=== PATIENT | male | born 1945 | race Caucasian/White ===

== ENCOUNTER → 2016-10-10 | Outpatient (REF) | payer OTHER | LOC: M SFHCPLAZ 10:04 | PROVIDERS: ATTEND Nurse Practitioner Family | DX: J44.9 Chronic obstructive pulmonary disease, unspecified (principal); Z00.00 Encounter for general adult medical examination without abnormal findings; E78.5 Hyperlipidemia, unspecified; R73.01 Impaired fasting glucose; Z53.8 Procedure and treatment not carried out for other reasons ==

== ENCOUNTER → 2016-10-11 | Outpatient (REF) | payer OTHER ==
[2016-10-11 12:06] LABS: BASO % 0.5 % (0.0-1.0); EOS # 0.2 K/mm3 (0.0-0.50); LARGE UNSTAINED CELL # 0.2 K/mm3 (0.0-0.4); LARGE UNSTAINED CELL % 2.8 % (0.0-4.0); LYMPH # 2.3 K/mm3 (1.5-4.5); MEAN CORPUSCULAR HEMOGLOBIN 29.4 pg (27.0-33.0); MEAN CORPUSCULAR VOLUME 89.3 fl (80.0-96.0); MONO # 0.4 K/mm3 (0.0-0.8); MONO % 6.3 % (0.0-5.0); NEUTROPHILS # 3.4 K/mm3 (1.8-7.7); NEUTROPHILS % 52.4 % (36.0-66.0); PLATELET COUNT, AUTOMATED 234 k/mm3 (150-450); RED CELL DISTRIBUTION WIDTH 12.6 % (11.5-14.5); WHITE BLOOD COUNT 6.5 K/mm3 (4.0-10.0)
[2016-10-11 12:11] LABS: ALBUMIN 3.4 GM/DL (3.2-5.2); ALBUMIN/GLOBULIN RATIO 1.13 (1.00-1.93); ALKALINE PHOSPHATASE 94 U/L (45-117); ALT/SGPT 22 U/L (12-78); ANION GAP 9 MEQ/L (8-16); AST/SGOT 15 U/L (15-37); BILIRUBIN,TOTAL 0.5 MG/DL (0.2-1.0); BLOOD UREA NITROGEN 10 MG/DL (7-18); CALCIUM LEVEL 8.8 MG/DL (8.8-10.2); CARBON DIOXIDE LEVEL 28 MEQ/L (21-32); CHLORIDE LEVEL 106 MEQ/L (98-107); CHOLESTEROL LEVEL 193 MG/DL (<200); CREATININE FOR GFR 0.89 MG/DL (0.70-1.30); GLOMERULAR FILTRATION RATE > 60.0 (>42); GLUCOSE, FASTING 150 MG/DL (83-110); POTASSIUM SERUM 4.8 MEQ/L (3.5-5.1); SODIUM LEVEL 143 MEQ/L (136-145); TOTAL PROTEIN 6.4 GM/DL (6.4-8.2); TRIGLYCERIDES LEVEL 133 MG/DL (<150)
== END ==
LOC: M SFHCPLAZ 09:12
PROVIDERS: ATTEND Nurse Practitioner Family
DX: Z00.00 Encounter for general adult medical examination without abnormal findings (principal); J44.9 Chronic obstructive pulmonary disease, unspecified; E78.5 Hyperlipidemia, unspecified; R73.01 Impaired fasting glucose

== ENCOUNTER → 2017-05-28 | Outpatient (CLI) | payer OTHER ==
--- NOTE | 2017-05-28 16:43 | REP ---
CT chest without IV contrast: History: Pulmonary nodule. Comparison with [place] prior study 12/06/2014. CT findings: The lungs remain hyperinflated. There is a curvilinear and partially cavitary somewhat nodular opacity in the right upper lobe again noted. The lesion is in a slightly area of orientation compared to the prior study and has a somewhat different shape. It is more cavitary. Today it measures 2.7 x 1.3 x 1.6 cm. There are linear fibrotic markings extending from the lesion to the apex and to the anterior chest wall. In the left apex there is a stable size nodular density measuring 0.7 x 1.1 cm. This appears somewhat cavitary in nature on the November 2014 study. It appears solid today but is essentially unchanged. It does not appear suspicious. There is a third nodular opacity visible on today's CT study on page 54 of 120 in series 201. This is in the left upper lobe measuring 6 mm in greatest diameter. This is visible in retrospect and is unchanged from the November 2014 prior study consistent with a benign nodule. There are some areas of pleural plaquing or thickening which are unchanged in the major fissures. A subpleural nodule is seen in the right lower lobe on page 66 unchanged. No new pulmonary nodule is appreciated. No hilar or mediastinal mass or adenopathy is observed. No adrenal mass is seen Calcified gallstone is visible in the gallbladder. There is a cyst in the left lobe of the liver measuring 2.3 cm. This is unchanged. Some vascular calcification is noted. Impression: Cavitary nodular opacity in the right upper lobe is slightly larger than on the prior study. Two nodules in the left upper lobe are unchanged from 2015. There is evidence of COPD. Cholelithiasis and hepatic cyst seen. Signed by Ezra Landon MD 05/29/2017 07:57 A
== END ==
LOC: M RAD 07:20
PROVIDERS: ATTEND Internal Medicine Pulmonary Disease
DX: R91.8 Other nonspecific abnormal finding of lung field (principal); J44.9 Chronic obstructive pulmonary disease, unspecified; K80.20 Calculus of gallbladder without cholecystitis without obstruction; K76.89 Other specified diseases of liver

== ENCOUNTER → 2017-07-31 | Outpatient (CLI) | payer OTHER ==
--- NOTE | 2017-08-02 08:40 | REP ---
PET/CT: History: Solitary pulmonary nodule. Comparisons: Comparison is made with chest CT study from May 28, 2017 and an outside prior chest CT study from December 06, 2014. TECHNIQUE: 51 minutes following the intravenous injection of a 9.4 mCi dose of F-18 FDG, three-dimensional PET scintigraphy is acquired from the skull base to the proximal thighs. Triplanar noncontrast CT scanning is acquired through the same anatomic range for attenuation correction, and image registration with scan parameters optimized to minimize radiation exposure to the patient. PET scintigraphy and CT datasets were fused and displayed on a workstation with multiplanar and projection display capability. PET/CT Findings: There is minimal hypermetabolic uptake in the cavitary nodular process in the right apex, maximum standard uptake value 2.4. There is no hypermetabolic uptake in the left apical nodule, SUV 1.1. There is no other abnormal hypermetabolic uptake in the thorax. Incidental note is made of hypermetabolic uptake in the larynx, most pronounced anteriorly and to the left of midline with an area of hypermetabolic uptake up to 7.7 maximum standard uptake value. This appears to be at and just above the level of the glottis. There is no discernible soft tissue mass or asymmetry on accompanying CT. This could be a false-positive. Consider indirect laryngoscopy. Head and neck soft tissues are otherwise unremarkable. In the abdomen and pelvis, there is no abnormal FDG accumulation. Impression: The fibronodular cavitary density in the right upper lobe shows minimally hypermetabolic uptake. Malignancy is not completely excluded. Incidental equivocal laryngeal hypermetabolic uptake as described above. Consider indirect laryngoscopy. Signed by Ezra Landon MD 08/02/2017 01:10 P
== END ==
LOC: M PLARAD 07:40
PROVIDERS: ATTEND Internal Medicine Pulmonary Disease
DX: R91.1 Solitary pulmonary nodule (principal)
CPT/HCPCS: 78815; A9552

== ENCOUNTER → 2018-03-03 | Outpatient (CLI) | payer OTHER | LOC: M RAD 09:11 | DX: R91.8 Other nonspecific abnormal finding of lung field (principal) | CPT/HCPCS: 71250 ==

== ENCOUNTER → 2018-08-08 | Outpatient (REF) | payer OTHER ==
[2018-08-08 13:34] LABS: HEMATOCRIT 46.4 % (42.0-52.0); HEMOGLOBIN 15.1 g/dl (13.5-17.5); MEAN CORPUSCULAR HEMOGLOBIN 29.7 pg (27.0-33.0); MEAN CORPUSCULAR HGB CONC 32.5 g/dl (32.0-36.5); MEAN CORPUSCULAR VOLUME 91.2 fl (80.0-96.0); PLATELET COUNT, AUTOMATED 240 10^3/uL (150-450); RED BLOOD COUNT 5.09 10^6/uL (4.30-6.10); RED CELL DISTRIBUTION WIDTH 12.9 % (11.5-14.5); WHITE BLOOD COUNT 8.6 10^3/uL (4.0-10.0)
[2018-08-08 13:45] LABS: ALBUMIN 3.7 GM/DL (3.2-5.2); ALBUMIN/GLOBULIN RATIO 1.09 (1.00-1.93); ALKALINE PHOSPHATASE 86 U/L (45-117); ALT/SGPT 26 U/L (12-78); ANION GAP 5 MEQ/L (8-16); AST/SGOT 19 U/L (7-37); BILIRUBIN,TOTAL 0.4 MG/DL (0.2-1.0); BLOOD UREA NITROGEN 12 MG/DL (7-18); CALCIUM LEVEL 9.2 MG/DL (8.8-10.2); CARBON DIOXIDE LEVEL 31 MEQ/L (21-32); CHLORIDE LEVEL 105 MEQ/L (98-107); CHOLESTEROL LEVEL 230 MG/DL (<200); CHOLESTEROL RISK RATIO 6.216 (<5); CREATININE FOR GFR 0.96 MG/DL (0.70-1.30); GLOMERULAR FILTRATION RATE > 60.0 (>42); GLUCOSE, FASTING 125 MG/DL (70-100); HDL CHOLESTEROL 37 MG/DL (>40); LDL CHOLESTEROL 164 MG/DL (<100); NON-HDL-C 193 MG/DL; POTASSIUM SERUM 4.6 MEQ/L (3.5-5.1); SODIUM LEVEL 141 MEQ/L (136-145); TOTAL PROTEIN 7.1 GM/DL (6.4-8.2); TRIGLYCERIDES LEVEL 146 MG/DL (<150)
== END ==
LOC: M SFHCPLAZ 10:38
DX: E78.5 Hyperlipidemia, unspecified (principal); J44.9 Chronic obstructive pulmonary disease, unspecified
CPT/HCPCS: 84443

== ENCOUNTER → 2018-08-25 | Outpatient (CLI) | payer OTHER | LOC: M RAD 07:51 | DX: F17.210 Nicotine dependence, cigarettes, uncomplicated (principal); R93.1 Abnormal findings on diagnostic imaging of heart and coronary circulation | CPT/HCPCS: 76775 ==

== ENCOUNTER → 2018-10-03 | Outpatient (CLI) | payer MEDICARE ==
--- NOTE | 2018-10-06 08:47 | REP ---
MRI LUMBAR SPINE WITHOUT CONTRAST: HISTORY: Back pain. Decreased signal intensity on T2-weighted images is present in the lumbar intervertebral discs. The L2-3 through L5-S1 intervertebral discs are decreased in height. These findings are consistent with disc degeneration. A diffuse disc bulge is present at the L1-2 level. There is hypertrophy of the ligamenta flava and posterior articulating facets. These findings produce minimal central canal stenosis. The L1 nerves exit the neural foramina without compression. A diffuse disc bulge is present at the L2-3 level. There is hypertrophy of the ligamenta flava and posterior articulating facets. These findings produce mild central canal stenosis. The L2 nerves exit the neural foramina without compression. A diffuse disc bulge is present at the L3-4 level. There is hypertrophy of the ligamenta flava and posterior articulating facets. These findings produce mild central canal stenosis. The L3 nerves exit the neural foramina without compression. A diffuse disc bulge is present at the L4-5 level. There is hypertrophy of the ligamenta flava and posterior articulating facets. These findings produce moderate central canal stenosis. The L4 nerves exit the neural foramina without compression. A diffuse disc bulge is present at the L5-S1 level. There is minimal compression of the thecal sac. There is hypertrophy of the posterior articulating facets. There is compression of the L5 nerves in the neural foramina. The conus medullaris is normal in appearance terminating at the level of the L1-2 intervertebral disc. Increased signal intensity on T2-weighted images is present in the endplates of the L5 and S1 vertebral bodies. This represents degenerative change. IMPRESSION: 1. Minimal central canal stenosis at the L1-2 level secondary to disc bulge, ligamentous and facet hypertrophy. 2. Mild central canal stenosis at the L2-3 and L3-4 levels secondary to disc bulge, ligamentous and facet hypertrophy. 3. Moderate central canal stenosis at the L4-5 level secondary to disc bulge, ligamentous and facet hypertrophy. 4. Diffuse disc bulge at the L5-L1 level with minimal thecal sac compression. There is compression of the L5 nerves in the neural foramina. Electronically Signed by Adán Velasquez MD 10/06/2018 08:55 A
== END ==
LOC: M RAD 17:39
PROVIDERS: ATTEND Physician Assistant
DX: M51.36 Other intervertebral disc degeneration, lumbar region (principal)

== ENCOUNTER 2018-10-22 09:03 | Day surgery (SDC) | payer MEDICARE ==
[~2018-10-22] VITALS: Ht 175.3 cm; Wt 90.3 kg
[~2018-10-22 09:03] MED LIST: ADV250INH INH; CENTCHW3 PO; CRES10TA32 PO; LIDOCAINE 2% INJ 100 MG/5 ML SDV (FOR ANES.) As Ordered ONE; NS 1,000 ML IV SCH; PROPOFOL 200 MG/20 ML VIAL As Ordered ONE; VENTAER
[2018-10-22] MEDS ORDERED: ONDANSETRON 4MG/2ML VIAL (J2405) As Ordered ONE (10:29)
--- NOTE | 2018-10-22 10:47 | ROOR ---
Patient Name: Wally Portillo Procedure Date: 10/22/2018 9:58 AM Date of : 1945 Age: 73 Room: [facility] Gender: Male Note Status: Finalized Procedure: Colonoscopy Indications: High risk colon cancer surveillance: Personal history of colonic polyps Providers: Messi Sosa MD Referring MD: Peggy Davila NP Requesting Provider: Medicines: Monitored Anesthesia Care Complications: No immediate complications. Procedure: Pre-Anesthesia Assessment: - Prior to the procedure, a History and Physical was performed, and patient medications and allergies were reviewed. The patient is competent. The risks and benefits of the procedure and the sedation options and risks were discussed with the patient. All questions were answered and informed consent was obtained. Patient identification and proposed procedure were verified by the physician, the nurse and the anesthesiologist in the endoscopy suite. Mental Status Examination: alert and oriented. Airway Examination: normal oropharyngeal airway and neck mobility. Respiratory Examination: clear to auscultation. CV Examination: normal. Prophylactic Antibiotics: The patient does not require prophylactic antibiotics. Prior Anticoagulants: The patient has taken aspirin, last dose was day of procedure. ASA Grade Assessment: II - A patient with mild systemic disease. After reviewing the risks and benefits, the patient was deemed in satisfactory condition to undergo the procedure. The anesthesia plan was to use monitored anesthesia care (MAC). Immediately prior to administration of medications, the patient was re-assessed for adequacy to receive sedatives. The heart rate, respiratory rate, oxygen saturations, blood pressure, adequacy of pulmonary ventilation, and response to care were monitored throughout the procedure. The physical status of the patient was re-assessed after the procedure. The Colonoscope was introduced through the anus and advanced to the cecum, identified by appendiceal orifice and ileocecal valve. The colonoscopy was performed without difficulty. The patient tolerated the procedure well. The quality of the bowel preparation was good. Findings: Hemorrhoids were found on perianal exam. A few small and large-mouthed diverticula were found in the sigmoid colon and descending colon. There was no evidence of diverticular bleeding. Two sessile polyps were found in the transverse colon and ascending colon. The polyps were diminutive in size. These polyps were removed with a hot snare. Resection and retrieval were complete. Estimated blood loss: none. Five semi-pedunculated polyps were found in the recto-sigmoid colon, sigmoid colon and descending colon. The polyps were 2 to 8 mm in size. These polyps were removed with a hot snare. Resection and retrieval were complete. Estimated blood loss was minimal. The retroflexed view of the distal rectum and anal verge was normal and showed no anal or rectal abnormalities. Impression: - Hemorrhoids found on perianal exam. - Mild diverticulosis in the sigmoid colon and in the descending colon. There was no evidence of diverticular bleeding. - Two diminutive polyps in the transverse colon and in the ascending colon, removed with a hot snare. Resected and retrieved. - Five 2 to 8 mm polyps at the recto-sigmoid colon, in the sigmoid colon and in the descending colon, removed with a hot snare. Resected and retrieved. - The distal rectum and anal verge are normal on retroflexion view. Recommendation: - Discharge patient to home (ambulatory). - Repeat colonoscopy in 3 years for surveillance of multiple polyps. - Telephone my office for pathology results in 1 week. Messi Sosa MD Messi Sosa MD 10/22/2018 10:46:50 AM This report has been signed electronically. Number of Addenda: 0 Note Initiated On: 10/22/2018 9:58 AM Estimated Blood Loss: Estimated blood loss: none.
[2018-10-22 11:05] VITALS: BP 150/71
== END 2018-10-22 11:14 | disposition home or self-care (01) ==
LOC: M OPP 09:03
PROVIDERS: ATTEND Surgery
DX: Z12.11 Encounter for screening for malignant neoplasm of colon (principal); Z86.010 Personal history of colon polyps; Z80.0 Family history of malignant neoplasm of digestive organs; K64.9 Unspecified hemorrhoids; D12.3 Benign neoplasm of transverse colon; D12.2 Benign neoplasm of ascending colon; D12.7 Benign neoplasm of rectosigmoid junction; D12.5 Benign neoplasm of sigmoid colon; D12.4 Benign neoplasm of descending colon; K57.30 Diverticulosis of large intestine without perforation or abscess without bleeding; J44.9 Chronic obstructive pulmonary disease, unspecified; F17.210 Nicotine dependence, cigarettes, uncomplicated; Z79.82 Long term (current) use of aspirin; Z79.899 Other long term (current) drug therapy; Z79.891 Long term (current) use of opiate analgesic
CPT/HCPCS: 45385; 88305; J2405

== ENCOUNTER → 2018-12-16 | Outpatient (REF) | payer MEDICARE ==
[~2018-12-16] MED LIST changes: -LIDOCAINE 2% INJ 100 MG/5 ML SDV (FOR ANES.) As Ordered ONE; -NS 1,000 ML IV SCH; -PROPOFOL 200 MG/20 ML VIAL As Ordered ONE
[2018-12-16 14:59] LABS: ALBUMIN 3.5 GM/DL (3.2-5.2); ALT/SGPT 22 U/L (12-78); BILIRUBIN,TOTAL 0.3 MG/DL (0.2-1.0); BLOOD UREA NITROGEN 15 MG/DL (7-18); CALCIUM LEVEL 8.7 MG/DL (8.8-10.2); CARBON DIOXIDE LEVEL 29 MEQ/L (21-32); CHLORIDE LEVEL 106 MEQ/L (98-107); CHOLESTEROL LEVEL 223 MG/DL (<200); CHOLESTEROL RISK RATIO 6.194 (<5); CREATININE FOR GFR 0.84 MG/DL (0.70-1.30); GLOMERULAR FILTRATION RATE > 60.0 (>42); GLUCOSE, FASTING 112 MG/DL (70-100); HDL CHOLESTEROL 36 MG/DL (>40); LDL CHOLESTEROL 161 MG/DL (<100); NON-HDL-C 187 MG/DL; POTASSIUM SERUM 4.4 MEQ/L (3.5-5.1); SODIUM LEVEL 140 MEQ/L (136-145); TOTAL PROTEIN 6.6 GM/DL (6.4-8.2); TRIGLYCERIDES LEVEL 130 MG/DL (<150)
== END ==
LOC: M SFHCPLAZ 11:38
PROVIDERS: ATTEND Nurse Practitioner Family
DX: E78.5 Hyperlipidemia, unspecified (principal)

== ENCOUNTER → 2019-09-14 | Outpatient (CLI) | payer MEDICARE ==
[~2019-09-14] MED LIST changes: +CRES10TA PO; -CRES10TA32 PO
[2019-09-14 18:07] LABS: ALBUMIN 3.2 GM/DL (3.2-5.2); ALT/SGPT 23 U/L (12-78); BILIRUBIN,TOTAL 0.4 MG/DL (0.2-1.0); BLOOD UREA NITROGEN 14 MG/DL (7-18); CALCIUM LEVEL 8.8 MG/DL (8.8-10.2); CARBON DIOXIDE LEVEL 29 MEQ/L (21-32); CHLORIDE LEVEL 104 MEQ/L (98-107); CREATININE FOR GFR 0.94 MG/DL (0.70-1.30); FREE T4 0.98 NG/DL (0.76-1.46); GLOMERULAR FILTRATION RATE > 60.0 (>42); GLUCOSE, FASTING 108 MG/DL (70-100); POTASSIUM SERUM 4.7 MEQ/L (3.5-5.1); SODIUM LEVEL 141 MEQ/L (136-145); TOTAL PROTEIN 6.8 GM/DL (6.4-8.2)
[2019-09-14 18:08] LABS: BASO % 0.5 % (0.0-1.0); EOS # 0.2 10^3/uL (0.0-0.5); EOS % 2.1 % (0.0-3.0); HEMOGLOBIN 15.2 g/dl (13.5-17.5); LYMPH # 2.4 10^3/uL (1.5-5.0); MEAN CORPUSCULAR HEMOGLOBIN 29.7 pg (27.0-33.0); MEAN CORPUSCULAR VOLUME 95.9 fl (80.0-96.0); MONO # 0.8 10^3/uL (0.0-0.8); NEUTROPHILS # 4.7 10^3/uL (1.5-8.5); NEUTROPHILS % 57.5 % (36.0-66.0); PLATELET COUNT, AUTOMATED 254 10^3/uL (150-450); RED BLOOD COUNT 5.11 10^6/uL (4.30-6.10); WHITE BLOOD COUNT 8.2 10^3/uL (4.0-10.0)
[2019-09-14 18:36] LABS: HEMOGLOBIN A1c 6.9 %
== END ==
LOC: M PLALAB 12:33
PROVIDERS: ATTEND Physician Assistant Medical
DX: J06.9 Acute upper respiratory infection, unspecified (principal); R73.01 Impaired fasting glucose; E78.5 Hyperlipidemia, unspecified; E66.3 Overweight
CPT/HCPCS: 36415; 80053; 83036; 84439; 84443; 85025; 87486; 87581; 87633; 87798; 87804; G0463

== ENCOUNTER → 2020-01-14 | Outpatient (CLI) | payer MEDICARE ==
--- NOTE | 2020-01-14 18:02 | REPPI ---
Clinical: Edema. Technique: AP, lateral, bilateral oblique views of the right and left foot. Findings: Right foot demonstrates degenerative changes including increased sclerosis and minimal joint space narrowing involving the first tarsometatarsal and metatarsophalangeal joints as well as the first through fifth interphalangeal joints. Mild hallux valgus deformity and hammertoe deformity of the fourth and fifth toes. Degenerative changes at the tarsometatarsal joints includes subchondral sclerosis. No acute fracture or dislocation. Left foot demonstrates essentially age-related changes including minimal increased sclerosis at the first tarsometatarsal, metatarsophalangeal and interphalangeal joint as well as minimal joint space narrowing of the second through fifth interphalangeal joints. Mild sclerosis and joint space narrowing at the midfoot level also noted. No acute fracture or dislocation. Impression: Mild/early moderate degenerative changes primarily involving the right foot. Electronically Signed by Jessee Pickard MD 01/14/2020 05:54 P
== END ==
LOC: M PLAIMG 10:32
PROVIDERS: ATTEND Physician Assistant Medical
DX: M19.071 Primary osteoarthritis, right ankle and foot (principal); M19.072 Primary osteoarthritis, left ankle and foot; R60.9 Edema, unspecified

== ENCOUNTER → 2020-01-14 | Outpatient (CLI) | payer MEDICARE ==
--- NOTE | 2020-01-14 12:32 | REP ---
REASON: Bilateral thigh pain and swelling. DEEP VENOUS ULTRASONOGRAPHY BILATERAL THIGH, RULE OUT DVT: TECHNIQUE: Multiple ultrasonographic images of the deep venous structures of the thigh were obtained from the common femoral vein to the popliteal vein along with Doppler interrogation and color flow Doppler images. FINDINGS: There is no abnormal echogenic material seen within any of the visualized deep venous structures that would suggest acute thrombosis. Coaptation is unremarkable throughout. Doppler interrogation shows an expected response to respiratory variability and augmentation. The color flow images show what appears to be a normal vascular pattern throughout. Seen in the right knee posterior popliteal fossa, there is a 5 x 1.2 x 2.5 cm sized mixed but nearly anechoic structure consistent with a Holley's cyst. It is somewhat complex. IMPRESSION: There is no ultrasonographic evidence of deep venous thrombosis involving any of the visualized deep venous structures of the bilateral thigh, as described above. Electronically Signed by Buddy Gonzalez DO 01/14/2020 12:38 P
== END ==
LOC: M RAD 11:03
PROVIDERS: ATTEND Physician Assistant Medical
DX: R60.9 Edema, unspecified (principal)

== ENCOUNTER → 2020-01-14 | Outpatient (REF) | payer MEDICARE ==
[2020-01-14 14:16] LABS: HEMOGLOBIN A1c 7.4 %
== END ==
LOC: M SFHCPLAZ 10:18
PROVIDERS: ATTEND Physician Assistant Medical
DX: R73.01 Impaired fasting glucose (principal); C61 Malignant neoplasm of prostate
CPT/HCPCS: 83036; G0103

== ENCOUNTER → 2020-02-10 | Outpatient (REF) | payer MEDICARE ==
[2020-02-10 14:33] LABS: CHOLESTEROL RISK RATIO 3.525 (<5)
== END ==
LOC: M SFHCPLAZ 09:53
PROVIDERS: ATTEND Physician Assistant Medical
DX: E78.5 Hyperlipidemia, unspecified (principal); C61 Malignant neoplasm of prostate
CPT/HCPCS: 36415; 80061; G0103

== ENCOUNTER → 2020-02-24 | Outpatient (REF) | payer MEDICARE ==
[2020-02-24 19:19] LABS: APPEARANCE, URINE CLEAR (CLEAR); BACTERIA, URINE AUTO NEGATIVE (NEGATIVE); BILIRUBIN, URINE AUTO NEGATIVE (NEGATIVE); BLOOD, URINE BLOOD NEGATIVE (NEGATIVE); COLOR, URINE YELLOW (YELLOW); GLUCOSE, URINE (UA) AUTO NEGATIVE (NEGATIVE); KETONE, URINE AUTO TRACE mg/dL (NEGATIVE); LEUKOCYTE ESTERASE, URINE AUTO NEGATIVE (NEGATIVE); MUCUS, URINE SMALL (NEGATIVE); NITRITE, URINE AUTO NEGATIVE (NEGATIVE); PROTEIN, URINE AUTO NEGATIVE (NEGATIVE); RBC, URINE AUTO 1 /HPF (0-3); SPECIFIC GRAVITY URINE AUTO 1.021 (1.002-1.035); SQUAMOUS EPITHELIAL CELL UR AU 0 /HPF (0-6); WBC, URINE AUTO 0 /HPF (0-3)
== END ==
LOC: M SMT 17:46
PROVIDERS: ATTEND Nurse Practitioner Women's Health
DX: R97.20 Elevated prostate specific antigen [PSA] (principal); N40.0 Benign prostatic hyperplasia without lower urinary tract symptoms
CPT/HCPCS: 81001; 87086; G0463

== ENCOUNTER → 2020-03-08 | Outpatient (CLI) | payer MEDICARE ==
--- NOTE | 2020-03-08 11:17 | REPPI ---
Prostate sonography: History: Elevated PSA. Sonographic findings: Trans rectal prostate sonography demonstrates unremarkable seminal vesicles. Prostate gland is heterogeneously enlarged with calcifications and cystic changes noted. Glandular dimensions are measured at 3.8 x 2.6 x 4.5 cm with a calculated glandular volume of 23 ml. Transrectal sonographic guidance is provided to Dr. Razo who performed trans rectal ultrasound guided needle biopsy procedure . Electronically Signed by Ezra Landon MD 03/08/2020 11:08 A
== END ==
LOC: M SMT PRO 09:34
PROVIDERS: ATTEND Urology
DX: C61 Malignant neoplasm of prostate (principal)
CPT/HCPCS: 55700; 76872; 76942; G0416

== ENCOUNTER → 2020-04-18 | Outpatient (CLI) | payer MEDICARE ==
[2020-05-16 03:40] LABS: INR 0.99; PARTIAL THROMBOPLASTIN TIME 34.2 SECONDS (25.0-38.4); PROTHROMBIN TIME 13.3 SECONDS (11.8-14.0)
[2020-05-16 03:41] LABS: HEMATOCRIT 46.9 % (42.0-52.0); HEMOGLOBIN 15.4 g/dl (13.5-17.5); MEAN CORPUSCULAR HGB CONC 32.8 g/dl (32.0-36.5); MEAN CORPUSCULAR VOLUME 91.4 fl (80.0-96.0); PLATELET COUNT, AUTOMATED 227 10^3/uL (150-450); RED BLOOD COUNT 5.13 10^6/uL (4.30-6.10); WHITE BLOOD COUNT 7.7 10^3/uL (4.0-10.0)
--- NOTE | 2020-06-10 10:56 | REP ---
CHEST X-RAY: TWO VIEWS HISTORY: Preoperative testing. Prostate cancer. This report was delayed due to a protracted episode of computer network disruption experienced by this facility. COMPARISON: 10/19/2014. FINDINGS: There is mild hyperinflation of the lung barron with flattening of the hemidiaphragms and an increase in the AP diameter of the chest. There is extensive degenerative disc and osteophyte formation in the thoracic spine. Thoracic aorta is calcific. The heart is not enlarged. There is a band of coarse linear fibrosis in the right apex. Lung barron are otherwise clear. IMPRESSION: Hyperinflation consistent with chronic obstructive pulmonary disease (COPD). Advanced degenerative spondylosis of the thoracic spine. No lytic or blastic bony destructive lesion seen. Otherwise, no active disease. MTDD
--- NOTE | 2020-06-15 10:41 | ECGEPIP ---
[facility] Test Date: 2020-04-18 Pat Name: HINA CRANDALL Department: Room: - Gender: Male Frit Coater: SHELBY : 1945 Requested By: SANCHEZ Rice Order Number: [id number] Reading MD: Sameer Tucker Measurements Intervals [place] Rate: 95 P: 80 ID: [id number] QRS: 55 QRSD: 73 T: 70 QT: 319 QTc: 401 Interpretive Statements SINUS RHYTHM WITH OCCASIONAL VENTRICULAR PREMATURE COMPLEXES BORDERLINE ECG LOW VOLTAGE BODY HABITUS VS COPD SEE DOWNTIME SCANNED REPORT
[2020-06-24 15:11] LABS: GLUCOSE, FASTING SEE SEPARATE REPORT MG/DL
== END ==
LOC: EDBD → M LAB 10:05
PROVIDERS: ATTEND Urology
DX: Z01.818 Encounter for other preprocedural examination (principal); C61 Malignant neoplasm of prostate

== ENCOUNTER → 2020-04-21 | Outpatient (REF) | payer MEDICARE ==
[2020-05-17 12:27] LABS: INR 1.01; PARTIAL THROMBOPLASTIN TIME 36.3 SECONDS (25.0-38.4); PROTHROMBIN TIME 13.5 SECONDS (11.8-14.0)
[2020-05-18 06:34] LABS: BASO % 0.3 % (0.0-1.0); EOS # 0.4 10^3/uL (0.0-0.5); EOS % 3.7 % (0.0-3.0); HEMATOCRIT 46.2 % (42.0-52.0); HEMOGLOBIN 14.8 g/dl (13.5-17.5); LYMPH # 3.8 10^3/uL (1.5-5.0); LYMPH % 39.5 % (24.0-44.0); MEAN CORPUSCULAR HEMOGLOBIN 29.8 pg (27.0-33.0); MEAN CORPUSCULAR VOLUME 93.1 fl (80.0-96.0); MONO # 0.6 10^3/uL (0.0-0.8); MONO % 6.6 % (0.0-5.0); NEUTROPHILS # 4.8 10^3/uL (1.5-8.5); NEUTROPHILS % 49.7 % (36.0-66.0); PLATELET COUNT, AUTOMATED 223 10^3/uL (150-450); RED BLOOD COUNT 4.96 10^6/uL (4.30-6.10); WHITE BLOOD COUNT 9.7 10^3/uL (4.0-10.0)
[2020-05-18 06:39] LABS: APPEARANCE, URINE CLEAR (CLEAR); BACTERIA, URINE AUTO NEGATIVE (NEGATIVE); BILIRUBIN, URINE AUTO NEGATIVE (NEGATIVE); BLOOD, URINE BLOOD NEGATIVE (NEGATIVE); COLOR, URINE YELLOW (YELLOW); GLUCOSE, URINE (UA) AUTO NEGATIVE (NEGATIVE); KETONE, URINE AUTO NEGATIVE (NEGATIVE); LEUKOCYTE ESTERASE, URINE AUTO TRACE (NEGATIVE); MUCUS, URINE SMALL (NEGATIVE); NITRITE, URINE AUTO NEGATIVE (NEGATIVE); PROTEIN, URINE AUTO NEGATIVE (NEGATIVE); RBC, URINE AUTO 1 /HPF (0-3); SPECIFIC GRAVITY URINE AUTO 1.005 (1.002-1.035); SQUAMOUS EPITHELIAL CELL UR AU 0 /HPF (0-6); UROBILINOGEN, URINE AUTO 0.2 mg/dL (0.0-2.0); WBC, URINE AUTO 11 /HPF (0-3)
[2020-05-29 08:53] LABS: BLOOD UREA NITROGEN 9 MG/DL (7-18); CALCIUM LEVEL 8.7 MG/DL (8.8-10.2); CARBON DIOXIDE LEVEL 28 MEQ/L (21-32); CHLORIDE LEVEL 107 MEQ/L (98-107); CREATININE FOR GFR 0.93 MG/DL (0.70-1.30); GLOMERULAR FILTRATION RATE > 60.0 (>42); GLUCOSE, FASTING 141 MG/DL (70-100); POTASSIUM SERUM 4.2 MEQ/L (3.5-5.1); SODIUM LEVEL 141 MEQ/L (136-145)
== END ==
LOC: M SFHCPLAZ 10:37
PROVIDERS: ATTEND Family Medicine
DX: Z01.818 Encounter for other preprocedural examination (principal); J44.9 Chronic obstructive pulmonary disease, unspecified; E78.5 Hyperlipidemia, unspecified; Z79.899 Other long term (current) drug therapy

== ENCOUNTER 2020-04-28 13:00 | Inpatient (IN) | payer MEDICARE ==
[~2020-04-28 13:00] MED LIST changes: +BUPIVACAINE HCL 0.25% 30ML VIAL As Ordered ONE; +HEPARIN SOD (PORCINE) 5000UNITS/ML 1ML VIAL/SYRINGE As Ordered ONE; +LIDOCAINE 1% SDV 30ML VIAL As Ordered ONE; +ceFAZolin 2 GM/D5W 50 ML IV BAG (J0690 PER 500MG) As Ordered ONE
[2020-04-28] MEDS ORDERED: fentaNYL 100 MCG/2 ML INJECTION (J3010) As Ordered ONE ×2 (13:56→17:51)
[2020-04-28] MEDS ORDERED: propofoL 200 MG/20 ML VIAL As Ordered ONE (13:56)
[2020-04-28] MEDS ORDERED: MIDAZOLAM INJ 2MG/2ML VIAL (J2250 PER 1MG) As Ordered ONE (13:56)
[2020-04-28] MEDS ORDERED: ONDANSETRON 4MG/2ML VIAL As Ordered ONE (13:56)
[2020-04-28] MEDS ORDERED: dexameTHASONE 4 MG/ML 1ML VIAL (J1100 PER 1MG) As Ordered ONE (13:56)
[2020-04-28] MEDS ORDERED: ROCURONIUM BROMIDE 50 MG/5 ML VIAL As Ordered ONE ×2 (13:56→13:59)
[2020-04-28] MEDS ORDERED: HYDROmorphone HCL 2 MG/ML 1ML VIAL (J1170) As Ordered ONE (13:56)
[2020-04-28] MEDS ORDERED: LIDOCAINE 2% 100MG/5ML SDV (FOR ANES.) As Ordered ONE (13:56)
[2020-04-28] MEDS ORDERED: ACETAMINOPHEN 1000MG 100ML IV BTL (OFIRMEV) (J0131 PER 10MG) As Ordered ONE (14:32)
[2020-04-28] MEDS ORDERED: SUGAMMADEX SODIUM 500 MG/5 ML VIAL (BRIDION) As Ordered ONE (15:52)
[2020-04-28] MEDS ORDERED: fentaNYL 100 MCG/2 ML INJECTION (J3010) ONE (17:51)
[2020-04-28] MEDS ORDERED: PERCOCET 5MG/325MG TAB ONE (22:00)
[2020-04-28] MEDS ORDERED: HEPARIN SOD (PORCINE) 5000UNITS/ML 1ML VIAL/SYRINGE ONE (22:00)
[2020-04-28] MEDS ORDERED: DOCUSATE SODIUM 100 MG CAP ONE (22:00)
[2020-04-28] MEDS ORDERED: ceFAZolin 1GM VIAL (J0690 PER 500MG) ONE (22:00)
[2020-04-28] MEDS ORDERED: DOCUSATE SODIUM 100 MG CAP As Ordered ONE (22:05)
[2020-04-28] MEDS ORDERED: HEPARIN SOD (PORCINE) 5000UNITS/ML 1ML VIAL/SYRINGE As Ordered ONE (22:05)
[2020-04-28] MEDS ORDERED: PERCOCET 5MG/325MG TAB As Ordered ONE (22:06)
[2020-04-28] MEDS ORDERED: ceFAZolin 1GM VIAL (J0690 PER 500MG) As Ordered ONE (22:06)
[2020-04-29] MEDS ORDERED: FUROSEMIDE 20MG/2ML VIAL (J1940) ONE (03:20)
[2020-04-29] MEDS ORDERED: PERCOCET 5MG/325MG TAB As Ordered ONE ×4 (03:20→17:02)
[2020-04-29] MEDS ORDERED: PERCOCET 5MG/325MG TAB ONE ×5 (03:20→17:00)
[2020-04-29] MEDS ORDERED: FUROSEMIDE 20MG/2ML VIAL (J1940) As Ordered ONE (03:21)
[2020-04-29] MEDS ORDERED: HEPARIN SOD (PORCINE) 5000UNITS/ML 1ML VIAL/SYRINGE ONE (06:00)
[2020-04-29] MEDS ORDERED: ceFAZolin 1GM VIAL (J0690 PER 500MG) ONE (06:00)
[2020-04-29] MEDS ORDERED: ACETAMINOPHEN TAB 650MG DOSE (2X325MG) ONE ×2 (06:00→18:26)
[2020-04-29] MEDS ORDERED: ACETAMINOPHEN TAB 650MG DOSE (2X325MG) As Ordered ONE ×2 (06:03→18:30)
[2020-04-29] MEDS ORDERED: ceFAZolin 1GM VIAL (J0690 PER 500MG) As Ordered ONE (06:03)
[2020-04-29] MEDS ORDERED: HEPARIN SOD (PORCINE) 5000UNITS/ML 1ML VIAL/SYRINGE As Ordered ONE (06:03)
[2020-04-29] MEDS ORDERED: ROSUVASTATIN 10 MG TAB (CRESTOR) As Ordered ONE (08:21)
[2020-04-29] MEDS ORDERED: DOCUSATE SODIUM 100 MG CAP As Ordered ONE (08:21)
[2020-04-29] MEDS ORDERED: DOCUSATE SODIUM 100 MG CAP ONE (08:21)
[2020-04-29] MEDS ORDERED: ROSUVASTATIN 10 MG TAB (CRESTOR) ONE (08:21)
[2020-04-29] MEDS ORDERED: KETOROLAC 30 MG/ML 1ML VIAL ONE (12:00)
[2020-04-29] MEDS ORDERED: KETOROLAC 30 MG/ML 1ML VIAL As Ordered ONE ×2 (12:08→18:26)
[2020-06-15 20:46] LABS: HEMATOCRIT 37.3 % (42.0-52.0); HEMOGLOBIN 12.1 g/dl (13.5-17.5); MEAN CORPUSCULAR HEMOGLOBIN 30.7 pg (27.0-33.0); MEAN CORPUSCULAR HGB CONC 32.4 g/dl (32.0-36.5); MEAN CORPUSCULAR VOLUME 94.7 fl (80.0-96.0); PLATELET COUNT, AUTOMATED 187 10^3/uL (150-450); RED BLOOD COUNT 3.94 10^6/uL (4.30-6.10); WHITE BLOOD COUNT 11.5 10^3/uL (4.0-10.0)
[2020-06-15 20:47] LABS: HEMATOCRIT 35.4 % (42.0-52.0); HEMOGLOBIN 11.4 g/dl (13.5-17.5); MEAN CORPUSCULAR HEMOGLOBIN 30.4 pg (27.0-33.0); MEAN CORPUSCULAR HGB CONC 32.2 g/dl (32.0-36.5); MEAN CORPUSCULAR VOLUME 94.4 fl (80.0-96.0); PLATELET COUNT, AUTOMATED 201 10^3/uL (150-450); RED BLOOD COUNT 3.75 10^6/uL (4.30-6.10); WHITE BLOOD COUNT 10.6 10^3/uL (4.0-10.0)
[2020-06-25 10:34] LABS: HEMATOCRIT 41.4 % (42.0-52.0); HEMOGLOBIN 13.1 g/dl (13.5-17.5); MEAN CORPUSCULAR HGB CONC 31.6 g/dl (32.0-36.5); MEAN CORPUSCULAR VOLUME 94.7 fl (80.0-96.0); PLATELET COUNT, AUTOMATED 222 10^3/uL (150-450); RED BLOOD COUNT 4.37 10^6/uL (4.30-6.10); WHITE BLOOD COUNT 14.1 10^3/uL (4.0-10.0)
--- NOTE | 2020-06-30 09:31 | RO ---
DATE OF PROCEDURE: April 28, 2020 PREOPERATIVE DIAGNOSIS: Prostate cancer. POSTOPERATIVE DIAGNOSIS: Prostate cancer. PROCEDURES: Robotic-assisted laparoscopic radical prostatectomy. SURGEON: Madi Razo MD SOFTWARE BUILD ENGINEER: Mary Morataya MD ANESTHESIA: General. OPERATIVE INDICATIONS: This is a 75-year-old male with clinical T1c Juan Diego 3+3 prostate cancer who is here today for treatment. DESCRIPTION OF PROCEDURE: The patient was brought to the operating room and general anesthesia was induced. Prophylactic antibiotics were infused. He was then placed in the supine position and then prepped and draped in the usual sterile fashion. At this point, a Salmeron catheter was inserted into the bladder and the balloon was filled with 10 mL of sterile water. We then made a midline incision just above the umbilicus for an 8-mm port. A Veress needle was utilized to achieve pneumoperitoneum. Next, an 8-mm robotic port was inserted into the incision and subsequently the camera was inserted. There were no injuries from Veress needle placement or initial trocar placement. Then, three robotic ports were placed in the usual configuration in line just below the level of the umbilicus. A 12-mm medical practice assistant port was inserted lateral to the camera port. Once all of the ports were placed, the robot was docked. Additional lysis of adhesions between the sigmoid colon and the abdominal wall was then performed. The bladder was then released from the anterior abdominal wall using electrocautery. Once the bladder was dropped, the fat overlying the prostate was cleared using electrocautery. The superficial dorsal vein was controlled with electrocautery. The endopelvic fascia was opened on both sides and the dorsal venous complex was cleared. Next, a 0-Vicryl [id number] stitch was placed around the dorsal venous complex. Once that was done, the bladder was opened and dissected away from the prostate. At this point, the prostate was lifted up. The vas deferentia were identified in the midline. They were controlled with electrocautery and then transected. The seminal vesicles were also dissected bilaterally. At this point, I ligated and transected bilateral prostatic pedicles using the Harmonic scalpel. The pedicles were carried towards the apex. After taking care of the pedicles, the dorsal venous complex was transected with electrocautery. The urethra was then transected using cold scissors. The prostate was mobilized off of the rectum using cold scissors. At this point, we checked for hemostasis after the prostate was completely removed and it appeared very good. Once hemostasis was confirmed, I then performed the vesicourethral anastomosis. This was done in a running fashion using a Quill stitch. Once this was performed, the final 20-Japanese Salmeron catheter was placed. The balloon was filled with 15 mL sterile water. Upon completion of the vesicourethral anastomosis, it was tested by filling the bladder with sterile saline. The anastomosis appeared to be water-tight. At this point, the prostate and seminal vesicles were placed in the EndoCatch bag for future retrieval. A Go-Dillon drain was brought in through the left robotic port skin site and the drain was positioned anterior to the bladder. The robot was then undocked. A Nasrin vascular closure device was utilized to place a 0-Vicryl suture through the fascia of the 12-mm medical practice assistant port. The drain was secured to the skin with a 2-0 Ethibond suture. The prostate and seminal vesicles were then extracted from the camera port skin site and skin and fascia were extended. The fascia in this incision was then closed with a running 0-Vicryl stitch. Next, all of the remaining ports were removed and there did not appear to be any bleeding from any of the port sites. The previously placed 0- Vicryl free ties through the medical practice assistant port were then tied down and all incisions were irrigated. Last, all of the incisions were closed with running subcuticular 4-0 Monocryl sutures. Local anesthetic was applied. Dermabond was then applied to the incisions. This marked the conclusion of the procedure. The patient was then awakened from anesthesia and transported to the recovery room in stable condition. ESTIMATED BLOOD LOSS: 400 mL. COMPLICATIONS: None. SPECIMENS: * Prostate. * Seminal vesicles. PLAN: The patient will be admitted to the hospital postoperatively and he will likely be discharged to home within the next 1-2 days. KRISTOFER
--- NOTE | 2020-07-01 15:10 | DS ---
DATE OF ADMISSION: 04/28/2020 DATE OF DISCHARGE: 04/29/2020 ADMISSION DIAGNOSIS: Prostate cancer. DISCHARGE DIAGNOSIS: Prostate cancer. ADMITTING PHYSICIAN: Madi Razo MD. DISCHARGING PHYSICIAN: Madi Razo MD. PROCEDURE PERFORMED: Robotic-assisted laparoscopic radical prostatectomy on 04/28/2020. HISTORY OF PRESENT ILLNESS: This is a 75-year-old male who underwent the above procedure for treatment of prostate cancer. He was admitted to the hospital postoperatively. HOSPITALIZATION COURSE: The patient was admitted to the hospital after undergoing the above listed procedure on 04/28/2020. His postoperative was for the most part unremarkable. On postoperative day one, all of his labs were within acceptable limits. He did note a moderate amount of discomfort from his Salmeron catheter. He was started on Toradol to help with this and it helped his pain subside significantly. He had a very good urine output throughout his hospital stay. His Go-Dillon drain had minimal output. By the end of postoperative day one, he was ambulating well. He was tolerating a regular diet. His pain was controlled with oral pain medication. He was deemed ready for discharge home. His Go-Dillon drain was removed prior to discharge. He was discharged home with his catheter in place with the plan for him to follow-up in the urology clinic in approximately one week for catheter removal and to discuss pathology results. KRISTOFER
[2020-07-18 10:03] LABS: BLOOD UREA NITROGEN 14 MG/DL (7-18); CALCIUM LEVEL 7.8 MG/DL (8.8-10.2); CARBON DIOXIDE LEVEL 29 MEQ/L (21-32); CHLORIDE LEVEL 106 MEQ/L (98-107); CREATININE FOR GFR 1.11 MG/DL (0.70-1.30); GLOMERULAR FILTRATION RATE > 60.0 (>42); GLUCOSE, FASTING 180 MG/DL (70-100); POTASSIUM SERUM 4.2 MEQ/L (3.5-5.1); SODIUM LEVEL 139 MEQ/L (136-145)
[2020-07-18 16:41] LABS: BLOOD UREA NITROGEN 12 MG/DL (7-18); CALCIUM LEVEL 8.1 MG/DL (8.8-10.2); CARBON DIOXIDE LEVEL 28 MEQ/L (21-32); CHLORIDE LEVEL 108 MEQ/L (98-107); CREATININE FOR GFR 1.07 MG/DL (0.70-1.30); GLOMERULAR FILTRATION RATE > 60.0 (>42); GLUCOSE, FASTING 161 MG/DL (70-100); POTASSIUM SERUM 4.8 MEQ/L (3.5-5.1); SODIUM LEVEL 139 MEQ/L (136-145)
== END 2020-04-29 12:00 | disposition home or self-care (01) | DRG 708 ==
LOC: M MS5PR 20:00
PROVIDERS: ADMIT Urology; ATTEND Urology
PROC: 0VT04ZZ Resection of Prostate, Percutaneous Endoscopic Approach (ICD-10-PCS; principal; 2020-04-28)
PROC: 8E0WXCZ Robotic Assisted Procedure of Trunk Region (ICD-10-PCS; 2020-04-28)
DX: C61 Malignant neoplasm of prostate (principal)

== ENCOUNTER → 2020-05-09 | Outpatient (REF) | payer MEDICARE ==
[~2020-05-09] MED LIST changes: -BUPIVACAINE HCL 0.25% 30ML VIAL As Ordered ONE; -HEPARIN SOD (PORCINE) 5000UNITS/ML 1ML VIAL/SYRINGE As Ordered ONE; -LIDOCAINE 1% SDV 30ML VIAL As Ordered ONE; -ceFAZolin 2 GM/D5W 50 ML IV BAG (J0690 PER 500MG) As Ordered ONE
[2020-06-25 16:43] LABS: HEMOGLOBIN 12.1 g/dl (13.5-17.5); MEAN CORPUSCULAR HEMOGLOBIN 30.8 pg (27.0-33.0); MEAN CORPUSCULAR HGB CONC 32.7 g/dl (32.0-36.5); MEAN CORPUSCULAR VOLUME 94.1 fl (80.0-96.0); PLATELET COUNT, AUTOMATED 262 10^3/uL (150-450); RED BLOOD COUNT 3.93 10^6/uL (4.30-6.10); WHITE BLOOD COUNT 9.2 10^3/uL (4.0-10.0)
[2020-07-05 00:17] LABS: ALBUMIN 3.5 GM/DL (3.2-5.2); ALT/SGPT 23 U/L (12-78); BILIRUBIN,TOTAL 0.4 MG/DL (0.2-1.0); BLOOD UREA NITROGEN 13 MG/DL (7-18); CALCIUM LEVEL 8.9 MG/DL (8.8-10.2); CARBON DIOXIDE LEVEL 28 MEQ/L (21-32); CHLORIDE LEVEL 108 MEQ/L (98-107); GLOMERULAR FILTRATION RATE > 60.0 (>42); GLUCOSE, FASTING 94 MG/DL (70-100); NT-PRO BNP 35 PG/ML (<450); POTASSIUM SERUM 4.4 MEQ/L (3.5-5.1); SODIUM LEVEL 138 MEQ/L (136-145); TOTAL PROTEIN 6.9 GM/DL (6.4-8.2); TROPONIN I < 0.02 NG/ML (< 0.10)
== END ==
LOC: M SFHCPLAZ 12:14
PROVIDERS: ATTEND Family Medicine
DX: L03.90 Cellulitis, unspecified (principal); R60.9 Edema, unspecified

== ENCOUNTER → 2020-05-17 | Outpatient (CLI) | payer MEDICARE ==
[2020-05-17 13:26] LABS: ALBUMIN 3.6 GM/DL (3.2-5.2); ALT/SGPT 21 U/L (12-78); BILIRUBIN,TOTAL 0.4 MG/DL (0.2-1.0); BLOOD UREA NITROGEN 10 MG/DL (7-18); CALCIUM LEVEL 9.3 MG/DL (8.8-10.2); CARBON DIOXIDE LEVEL 32 MEQ/L (21-32); CHLORIDE LEVEL 107 MEQ/L (98-107); CREATININE FOR GFR 0.87 MG/DL (0.70-1.30); GLOMERULAR FILTRATION RATE > 60.0 (>42); GLUCOSE, FASTING 145 MG/DL (70-100); MAGNESIUM LEVEL 2.2 MG/DL (1.8-2.4); POTASSIUM SERUM 4.7 MEQ/L (3.5-5.1); SODIUM LEVEL 140 MEQ/L (136-145)
[2020-05-17 14:30] LABS: HEMOGLOBIN A1c 6.4 %
== END ==
LOC: M PLALAB 09:05
PROVIDERS: ATTEND Family Medicine
DX: I50.30 Unspecified diastolic (congestive) heart failure (principal); L03.115 Cellulitis of right lower limb
CPT/HCPCS: 36415; 80053; 83036; 83735; G0463

== ENCOUNTER → 2020-06-07 | Outpatient (CLI) | payer MEDICARE ==
--- NOTE | 2020-06-17 09:10 | REP ---
LOW DOSE LUNG SCREENING: CLINICAL: Nicotine dependence. COMPARISON: Multiple examinations dating through 05/28/17. FINDINGS: Advanced emphysematous changes with scattered scarring and fibrosis along with moderate bronchiectasis is again noted. A few scattered stable noncalcified nodules and densities are again identified and similar to prior examination. There is a relatively new 3 mm nodule in the left lower lobe (image 47) as well as a non-solid density measuring approximately 8 mm in the subpleural left lower lobe (image 58). An area of chronic, somewhat elongated density in the right apex is again identified and now has a more solid central component as compared to prior examinations, which demonstrated a more cavitary central component. The lesion measures approximately 12 mm in short axis diameter (image 16). No consolidation. No effusion. No pneumothorax. IMPRESSION: Few densities as described above, including more solid component to the known elongated density in the right upper lobe. Given the appearance, these findings may represent lung-RADS 4A category. Three month low dose CT follow up and/or PET CT may be warranted for further investigation. MTDD
== END ==
LOC: M RAD 12:27
PROVIDERS: ATTEND Nurse Practitioner Family
DX: F17.218 Nicotine dependence, cigarettes, with other nicotine-induced disorders (principal); R91.8 Other nonspecific abnormal finding of lung field

== ENCOUNTER → 2020-06-14 | Outpatient (CLI) | payer MEDICARE | LOC: M PLALAB 10:16 | PROVIDERS: ATTEND Urology | DX: C61 Malignant neoplasm of prostate (principal) ==

== ENCOUNTER → 2020-09-20 | Outpatient (REF) | payer MEDICARE | LOC: M PLALAB 14:10 | PROVIDERS: ATTEND Urology | DX: C61 Malignant neoplasm of prostate (principal) ==

== ENCOUNTER → 2020-10-03 | Outpatient (CLI) | payer MEDICARE ==
--- NOTE | 2020-10-03 12:08 | REP ---
INDICATION: ABN FINDINGS LUNG FIELD NICOTINE DEPEND COPD COMPARISON: 06/07/2020, 09/24/2018 TECHNIQUE: Axial noncontrast images from the thoracic inlet to the upper abdomen with coronal and sagittal reformations. This CT examination was performed using the following dose reduction techniques: Automated exposure control, adjustment of mA and/or kv according to the patient's size, and use of iterative reconstruction technique. FINDINGS: The somewhat bilobed and partially cavitary lesion in the right upper lobe with marginal scarring is unchanged from recent short-term follow-up examination but does appear to have slightly more solid component when compared to the prior examination of 09/24/2018. The 10 mm nodule in the left apex remains unchanged through 2018. Underlying chronic advanced COPD/emphysematous changes with bronchiectasis and scarring again noted. No effusion. No pneumothorax. No obvious mediastinal adenopathy is appreciated. Further evaluation of the mediastinum demonstrates stable atherosclerotic changes to the thoracic aorta and coronary arteries without aortic aneurysm or cardiomegaly. No pericardial effusion. Limited upper abdomen demonstrates stable hepatic cyst and cholelithiasis with normal bilateral adrenal glands. IMPRESSION: 1. The somewhat bilobed and partially cavitary lesion in the right upper lobe is similar to most recent prior examination of 06/07/2020 but demonstrates slight increase in solid component as compared with 09/24/2018. Findings are equivocal for active disease. Short-term follow-up and/or PET-CT may be warranted. 2. Stable nodule in the left apex unchanged through 2018. Chronic COPD/emphysematous changes. <Electronically signed by Jessee Pickard > 10/03/20 [id number]
== END ==
LOC: M RAD 11:14
PROVIDERS: ATTEND Nurse Practitioner Family
DX: R91.8 Other nonspecific abnormal finding of lung field (principal); F17.218 Nicotine dependence, cigarettes, with other nicotine-induced disorders; J44.9 Chronic obstructive pulmonary disease, unspecified

== ENCOUNTER → 2020-10-06 | Outpatient (REF) | payer MEDICARE ==
[2020-10-06 13:56] LABS: ALBUMIN 3.7 GM/DL (3.2-5.2); ALT/SGPT 25 U/L (12-78); BILIRUBIN,TOTAL 0.3 MG/DL (0.2-1.0); BLOOD UREA NITROGEN 15 MG/DL (7-18); CALCIUM LEVEL 9.2 MG/DL (8.8-10.2); CARBON DIOXIDE LEVEL 30 MEQ/L (21-32); CHLORIDE LEVEL 106 MEQ/L (98-107); GLOMERULAR FILTRATION RATE > 60.0 (>42); GLUCOSE, FASTING 138 MG/DL (70-100); POTASSIUM SERUM 4.8 MEQ/L (3.5-5.1); SODIUM LEVEL 142 MEQ/L (136-145); TOTAL PROTEIN 6.8 GM/DL (6.4-8.2)
[2020-10-06 14:17] LABS: HEMOGLOBIN A1c 6.6 %
== END ==
LOC: M SFHCPLAZ 10:18
PROVIDERS: ATTEND Physician Assistant Medical
DX: R73.01 Impaired fasting glucose (principal); E78.5 Hyperlipidemia, unspecified
CPT/HCPCS: 36415; 80053; 83036; G0463

== ENCOUNTER → 2020-12-28 | Outpatient (REF) | payer MEDICARE | LOC: M SMT 13:34 | PROVIDERS: ATTEND Urology | DX: C61 Malignant neoplasm of prostate (principal) ==

== ENCOUNTER 2021-02-07 13:37 | Observation (INO) | payer MEDICARE ==
[~2021-02-07] VITALS: Ht 172.7 cm; Wt 94.4 kg
[2021-02-07] MEDS ORDERED: INCR1INH (13:59)
[2021-02-07] MEDS ORDERED: ASPI81CH33 PO (13:59)
[2021-02-07] MEDS ORDERED: CHAN1PAK11 PO (13:59)
[2021-02-07] MEDS ORDERED: METF500T13 PO (13:59)
[2021-02-07 14:13] LABS: BASO % 0.2 % (0.0-1.0); EOS # 0.1 10^3/uL (0.0-0.5); EOS % 1.4 % (0.0-3.0); HEMATOCRIT 48.7 % (42.0-52.0); HEMOGLOBIN 16.1 g/dl (13.5-17.5); LYMPH # 1.3 10^3/uL (1.5-5.0); MEAN CORPUSCULAR HGB CONC 33.1 g/dl (32.0-36.5); MEAN CORPUSCULAR VOLUME 90.7 fl (80.0-96.0); MONO # 0.7 10^3/uL (0.0-0.8); MONO % 6.6 % (2.0-8.0); NEUTROPHILS # 7.9 10^3/uL (1.5-8.5); NEUTROPHILS % 78.3 % (36.0-66.0); PLATELET COUNT, AUTOMATED 293 10^3/uL (150-450); RED BLOOD COUNT 5.37 10^6/uL (4.30-6.10); WHITE BLOOD COUNT 10.1 10^3/uL (4.0-10.0)
--- NOTE | 2021-02-07 14:22 | REP ---
INDICATION: Syncope/near-syncope. COMPARISON: 04/18/2020. TECHNIQUE: Single portable AP view of the chest was performed. FINDINGS: Right upper lobe scarring is stable. There is no acute infiltrate or pulmonary edema. The heart is normal in size. The mediastinal silhouette is unchanged. IMPRESSION: No acute pulmonary disease. <Electronically signed by Andrey German > 02/07/21 [id number]
[2021-02-07 14:44] LABS: BLOOD UREA NITROGEN 11 MG/DL (7-18); CALCIUM LEVEL 9.4 MG/DL (8.8-10.2); CARBON DIOXIDE LEVEL 26 MEQ/L (21-32); CHLORIDE LEVEL 104 MEQ/L (98-107); CK-MB VALUE MASS 2.7 NG/ML (<3.6); CPK CREATINE PHOSPHOKINASE 111 U/L (39-308); CREATININE FOR GFR 0.79 MG/DL (0.70-1.30); ETHYL ALCOHOL (ETHANOL) < 0.003 % (0.000-0.010); FREE T4 1.04 NG/DL (0.76-1.46); GLOMERULAR FILTRATION RATE > 60.0 (>42); GLUCOSE, FASTING 132 MG/DL (70-100); MAGNESIUM LEVEL 1.7 MG/DL (1.8-2.4); MB/CK RELATIVE INDEX 2.43 (< OR =4); POTASSIUM SERUM 4.1 MEQ/L (3.5-5.1); SODIUM LEVEL 140 MEQ/L (136-145); TROPONIN I < 0.02 NG/ML (< 0.10)
--- NOTE | 2021-02-07 14:51 | REP ---
INDICATION: Syncope. COMPARISON: Comparison is made with PET-CT images from July 31, 2017.. TECHNIQUE: Helical scanning is acquired. 5 mm axial images were reformatted. Coronal MPR images were generated. FINDINGS: Preliminary digital health lead radiograph is unremarkable. The patient is edentulous. On bone window settings there is a chronic opacification of the left maxillary sinus which is smaller than the right. This is unchanged from the 2017 prior study. Visualized paranasal sinuses are otherwise clear. Vascular calcification is noted in the distal internal carotid arteries bilaterally. No intraorbital abnormality is appreciated. On soft tissue window settings, there is and mild to moderate generalized intracranial volume loss. Physiologic calcification is seen in the basal ganglia. There is no evidence of intracranial hemorrhage. No infarction is seen. No extra-axial fluid collection, mass, or midline shift is observed. IMPRESSION: Vascular calcification and diffuse atrophy. No acute intracranial abnormality. Chronic sinusitis left maxillary sinus.. <Electronically signed by Sarthak Landon > 02/07/21 [id number]
[2021-02-07 16:22] LABS: INR 0.92; PROTHROMBIN TIME 12.6 SECONDS (12.5-14.3)
[2021-02-07] MEDS ORDERED: NS 1,000 ML IV ONE (16:25)
[2021-02-07] MEDS ORDERED: DEXTROSE 50% 50 ML SYRINGE IV PRN (17:35)
[2021-02-07] MEDS ORDERED: GLUCOSE 4GM CHEW TABLET PO PRN (17:35)
[2021-02-07] MEDS ORDERED: GLUCAGON INJ 1MG VIAL SC PRN (17:35)
--- NOTE | 2021-02-07 17:39 | IPNPDOC ---
Text Note Date of Service The patient was seen on 02/07/21. NOTE H+P dictated # [id number] VS,Fishbone, I+O VS, Fishbone, I+O Laboratory Tests 02/07/21 13:59 Vital Signs Date Time Temp Pulse Resp B/P (MAP) Pulse Ox O2 Delivery O2 Flow Rate FiO2 02/07/21 17:00 89 165/77 (106) 98 Room Air 02/07/21 14:15 97.6 02/07/21 13:47 20 ART PATTEN MD February 07, 2021 17:39
[2021-02-07] MEDS ORDERED: ASPI-424 PO (17:51)
--- NOTE | 2021-02-07 18:06 | HPE ---
HISTORY AND PHYSICAL DATE OF ADMISSION: 02/07/2021 Patient is seen in the emergency room at approximately 4:45 p.m. CHIEF COMPLAINT: Near syncope. HISTORY OF PRESENT ILLNESS: Mr. Portillo is a 76-year-old gentleman who has history of chronic obstructive pulmonary disease (COPD), tobacco abuse disorder for which he recently started on Chantix, prediabetes, along with prostate cancer with history of prostatectomy in the past. Patient was in his normal state of health up until today, when he started experiencing dizziness. Patient states that he is on his third dose of Chantix and started experiencing palpitations and lightheadedness while sitting. He attempted to get up and go outside to get some fresh air when he started experiencing vomiting, diarrhea and associated urinary incontinence. Patient denies having any loss of consciousness. He denies having any chest discomfort. He was brought to the emergency room where he was found to have a normal troponin marker as well as electrocardiogram (EKG). His hemodynamics are stable with a blood pressure of 122/[address] head without contrast done in the emergency room was otherwise unremarkable. Patient is admitted to the hospitalist service for further evaluation. ALLERGIES: No known drug allergies (NKDA). CURRENT HOME MEDICATIONS: - baby aspirin daily - folic acid 1 mg by mouth daily - metformin 500 mg twice a day - Advair - Incruse Ellipta - Chantix PAST MEDICAL HISTORY: Notable for: 1. Prediabetes. 2. Prostate cancer. 3. Chronic obstructive pulmonary disease (COPD) without oxygen dependency. PAST SURGICAL HISTORY: Notable only for the prostatectomy. SOCIAL HISTORY: Lives with his stepson. He smokes about a pack per day, but he has cut down considerably. He does not use any alcohol or illicit drugs. Patient lists his daughter as well as his stepson as surrogates for medical decision making. He would like to be a [employer]. FAMILY HISTORY: Was asked of patient, but is noncontributory. REVIEW OF SYSTEMS: Also reviewed with patient and otherwise negative. PHYSICAL EXAMINATION: Today, patient's blood pressure is 122/58, oxygen saturation 94% on room air, pulse is 88, temperature is 97.6. GENERAL: The patient is alert and oriented times three, appears in no acute distress and is resting comfortably. SKIN: Intact and warm. HEAD: Normocephalic, atraumatic. Pupils equal and reactive to light. Oropharynx is clear without exudate, erythema or thrush. NECK: Supple. LUNGS: Sounds are present bilaterally without rales, wheezes or rhonchi. HEART: S1, S2. No murmurs, rubs or gallops. ABDOMEN: Protuberant, soft, nondistended with active bowel sounds. EXTREMITIES: Without any cyanosis, clubbing or edema. NEUROLOGIC: Cranial nerves I-XII grossly intact without any focal neurologic deficits. RELEVENT LABORATORIES: White count 10.2, hemoglobin 16.1, hematocrit 48.7, platelet count 293,000. Sodium 140, potassium 4.1, chloride 104, bicarbonate 26, anion gap 10, BUN 11, creatinine 0. 79, glucose 132, lactic acid 1.9, calcium 9.4, magnesium 7. CK is only 11. Troponin less than 0.02. Thyroid stimulating hormone (TSH) 3.6, Free T4 is 1. Alcohol level is less than 0.03. Coags are normal. COVID swab is pending. IMPRESSION: 1. Presyncope. Possibly related to Chantix use. 2. Prediabetes. 3. Chronic tobacco abuse. 4. History of prostate cancer. PLAN: Patient will be admitted to observation status with telemetry. We will trend his troponin markers, check an echocardiogram as well as carotid Dopplers. For now, we will discontinue his Chantix. He will be placed on glucose sliding scale. We will hold his metformin for now. Anticipate that patient can be discharged home in the morning if he is otherwise stable and his workup is unremarkable.
[2021-02-07] MEDS: HumaLOG INSULIN (NovoLOG) PER UNIT SC SCH (19:53)
[2021-02-07 20:03] VITALS: BP 130/76
[2021-02-07 20:23] LABS: AMPHETAMINES LEVEL URINE NEGATIVE (NEGATIVE); BARBITURATES URINE NEGATIVE (NEGATIVE); BENZODIAZEPINES URINE NEGATIVE (NEGATIVE); CANNABINOIDS URINE NEGATIVE (NEGATIVE); COCAINE METABOLITE URINE NEGATIVE (NEGATIVE); METHADONE URINE NEGATIVE (NEGATIVE); OPIATES URINE NEGATIVE (NEGATIVE); PHENCYCLIDINE URINE NEGATIVE (NEGATIVE)
--- NOTE | 2021-02-07 21:03 | ECGEPIP ---
[facility] - ED Test Date: 2021-02-07 Pat Name: HINA CRANDALL Department: Room: - Gender: Male [employer]: : [id number] Requested By: RIGOBERTO ZEPEDA Order Number: [id number] Reading MD: Leonidas Finley Measurements Intervals [place] Rate: 106 P: 77 TN: 134 QRS: 42 QRSD: 70 T: 60 QT: 326 QTc: 433 Interpretive Statements Sinus tachycardia POOR R WAVE PROGRESSION SIMILAR TO 04/11/20 Electronically Signed on 02-07-2021 21:03:27 EDT by Leonidas Finley
[2021-02-07 21:14] LABS: CK-MB VALUE MASS 4.1 NG/ML (<3.6); CPK CREATINE PHOSPHOKINASE 196 U/L (39-308); MB/CK RELATIVE INDEX 2.09 (< OR =4); TROPONIN I < 0.02 NG/ML (< 0.10)
--- NOTE | 2021-02-07 22:16 | REPVR ---
PROCEDURE INFORMATION: Exam: US Duplex Bilateral Extracranial Arteries Exam date and time: 02/07/2021 9:38 PM Age: 76 years old Clinical indication: Pain; Other: Near syncope; Additional info: Presyncope TECHNIQUE: Imaging protocol: Real-time Duplex ultrasound scan of the bilateral carotid and vertebral arteries combining osborne scale, color Doppler and spectral waveform analysis. Bilateral exam. COMPARISON: 1. PT PET/CT Skull/mid thigh 2017-07-31 09:00 2. PT PET/CT SKULL BASE TO MID THIGH - OUTSIDE PRIOR 2016-02-27 10:12 FINDINGS: Right common carotid artery: Mild atherosclerosis. No occlusion. Waveforms are normal. Right internal carotid artery: Mild atherosclerosis. No occlusion. Waveforms are normal. Right ICA/CCA ratio: Within normal limits. Right external carotid artery: No stenosis in the origin. Right vertebral artery: Unremarkable. Antegrade flow. Left common carotid artery: Mild atherosclerosis. No occlusion. Waveforms are normal. Left internal carotid artery: Mild atherosclerosis. No occlusion. Waveforms are normal. Left ICA/CCA ratio: Within normal limits. Left external carotid artery: No stenosis in the origin. Left vertebral artery: Diminished, partially retrograde flow. IMPRESSION: 1. Mild bilateral ICA stenosis. 2. 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 Recommend CTA. REFERENCES: SRU CRITERIA. The degree of internal carotid artery stenosis is based on criteria defined by the Society of Radiologists in Ultrasound (SRU). Normal is no stenosis. Mild is less than 50% stenosis. Moderate is 50-69% stenosis. Severe is greater than 69% stenosis to near occlusion. Near occlusion is a markedly narrowed lumen. Total occlusion is no detectable patent lumen. Electronically signed by: Josh Hardin On 02/07/2021 22:16:24 PM
[2021-02-08 02:00] VITALS: BP 102/50
[2021-02-08 06:00] VITALS: BP 134/60
[2021-02-08 06:03] LABS: HEMATOCRIT 44.1 % (42.0-52.0); HEMOGLOBIN 14.4 g/dl (13.5-17.5); MEAN CORPUSCULAR HEMOGLOBIN 30.2 pg (27.0-33.0); MEAN CORPUSCULAR HGB CONC 32.7 g/dl (32.0-36.5); MEAN CORPUSCULAR VOLUME 92.5 fl (80.0-96.0); PLATELET COUNT, AUTOMATED 243 10^3/uL (150-450); RED BLOOD COUNT 4.77 10^6/uL (4.30-6.10); WHITE BLOOD COUNT 8.1 10^3/uL (4.0-10.0)
[2021-02-08 06:30] LABS: BLOOD UREA NITROGEN 10 MG/DL (7-18); CALCIUM LEVEL 8.5 MG/DL (8.8-10.2); CARBON DIOXIDE LEVEL 29 MEQ/L (21-32); CHLORIDE LEVEL 108 MEQ/L (98-107); CREATININE FOR GFR 0.77 MG/DL (0.70-1.30); GLOMERULAR FILTRATION RATE > 60.0 (>42); GLUCOSE, FASTING 107 MG/DL (70-100); SODIUM LEVEL 141 MEQ/L (136-145)
[2021-02-08] MEDS: HumaLOG INSULIN (NovoLOG) PER UNIT SC SCH ×2 (07:30→12:00)
[2021-02-08] MEDS ORDERED: ENOXAPARIN 40MG/0.4ML SYRINGE (J1650 PER 10MG) SC SCH (09:00)
[2021-02-08] MEDS ORDERED: ISOVUE-370 76% 100ML VIAL As Ordered ONE (10:35)
--- NOTE | 2021-02-08 11:22 | REP ---
INDICATION: carotid stenosis COMPARISON: Comparison is made with results of a carotid sonography 07 Feb 2021[address] head [address] study 07 Feb 2021. TECHNIQUE: Contrast enhancement dose is 100 mL of intravenous Isovue 370. Helical scanning is acquired. 2 mm axial images are re-formatted. Coronal and sagittal MPR images are generated. Coronal and sagittal MIP and oblique MPR images are generated. 3D surface rendered images are generated and viewed rotationally. FINDINGS: There is good opacification of the arterial tree. There is vascular calcification along the aortic arch. Moderate calcification is seen along the anterior wall of the left subclavian artery as it arises from the aorta. No significant narrowing is seen here. However, 2 cm prior distal to the origin of the left subclavian artery, there is circumferential plaquing and 75 to 80% stenosis of the left subclavian artery. This corresponds with the abnormal flow in the left vertebral artery on Doppler interrogation period great vessel origins are otherwise unremarkable. There is some calcification at the origin of the left vertebral artery and the left vertebral artery is small in the lower neck compared to the right period opacification of the lumen of the left vertebral artery is very poor in the distal segment. This improves at the level of C2 where a small patent vertebral artery is opacified. The right vertebral artery appears unremarkable. The common carotid arteries are intact and unremarkable bilaterally. Carotid bifurcations show minimal mixed plaquing bilaterally but no high-grade ICA stenosis is seen on either side. The distal internal carotid arteries are normal and symmetric. There is some vascular calcification in the carotid siphons bilaterally. Maximum intensity projection and curved MPR images show no significant carotid stenosis. Surface rendered images show absence of opacification of the cyst mid cervical segment of the left vertebral. IMPRESSION: 1. There is a high-grade, 75-80% focal stenosis 2 cm from the arch origin of the left subclavian artery. There is heavy vascular calcification at the origin the left vertebral artery and opacification of the left vertebral artery is poor. I cannot exclude occlusion of the mid cervical segment of the left vertebral artery. The distal segment of the left vertebral artery is smaller than its right-sided counterpart but patent. 2. Mild mixed plaquing in the carotid bifurcations bilaterally no carotid stenosis seen. <Electronically signed by Sarthak Landon > 02/08/21 [id number]
--- NOTE | 2021-02-08 11:24 | REP ---
INDICATION: abnormal carotid scan. COMPARISON: Comparison is made with the CT study of the brain from February 07, 2021.. TECHNIQUE: CT contrast dose: 100 ml of intravenous Isovue 370. CT technique: Helical scanning is acquired. 2 mm axial images are reformatted. Maximal intensity projection and multiplanar re-formation images are generated along with 3-D surface rendered color imaging which is viewed rotational. FINDINGS: There is good opacification of the arterial tree. The left distal vertebral artery is smaller than its right-sided counterpart but patent. Basilar artery is widely patent. Posterior cerebral and superior cerebellar arteries are unremarkable. There is vascular calcification in the carotid siphons bilaterally but no high-grade ICA stenosis is seen. The anterior and middle cerebral arteries are patent and symmetric. The dural sinuses are patent. No venous abnormality is appreciated. There is generalized intracranial volume loss again seen. IMPRESSION: Unremarkable CT angiography of the brain. <Electronically signed by Sarthak Landon > 02/08/21 [id number]
[2021-02-08 11:45] VITALS: BP 124/60
[2021-02-08] MEDS ORDERED: ATOR40TA75 PO (12:07)
--- NOTE | 2021-02-08 19:56 | DSES ---
DISCHARGE SUMMARY DATE OF ADMISSION: 02/07/2021 DATE OF DISCHARGE: 02/08/2021 DISCHARGE DIAGNOSES: 1. Near syncope, unspecified. 2. Left subclavian artery stenosis. 3. Hypertension. 4. Chronic tobacco abuse. 5. History of prostate cancer. 6. Prediabetes. 7. Chronic obstructive pulmonary disease (COPD) without exacerbation. PROCEDURES PERFORMED ON THIS HOSPITALIZATION: None. CONSULTANTS ON THE CASE: None. DISPOSITION: Patient is discharged home. DISCHARGE INSTRUCTIONS: Patient is instructed to take atorvastatin 20 mg daily. Patient is to follow up with his primary care physician (PCP) in approximately one weeks' time for post-hospital followup and referral to a vascular surgeon, as well as to schedule outpatient cardiac stress test. DISCHARGE MEDICATIONS: - atorvastatin 40 mg daily - baby aspirin daily - folic acid - multivitamin one tablet daily - metformin 500 mg twice a day; patient is advised not to take this for the next 48 hours secondary to his recent CTA of the head and neck - Advair 250/50 - Chantix IMAGING STUDIES OBTAINED: Chest x-ray one view showed no acute cardiopulmonary process. Initial CT of the head without contrast showed no acute intracranial abnormality. A carotid ultrasound showed mild bilateral internal carotid artery (ICA) stenosis, possible left-sided subclavian steal with diminished and partially retrograde flow in the left vertebral artery. CTA of the head and neck showed no vascular abnormality in the brain. Patient was noted to have high-grade focal stenosis of 75-80% 2 cm from the arch of the origin of left subclavian artery with no evidence of significant carotid stenosis. Echocardiogram with Doppler is pending at the time of discharge. RELEVANT LABORATORIES: White count 8.1, hemoglobin 14.4, hematocrit 44.1, platelet count 243. Sodium 141, potassium 4, chloride 108, bicarbonate 29, anion gap 4, BUN 10, creatinine 0.7, glucose 107, calcium 8.5. Urine drug screen was negative. Alcohol level was normal. HOSPITAL COURSE: Mr. Portillo is a 76-year-old gentleman who was at home and started experiencing dizziness with nausea and vomiting. It almost felt like he was going to pass out. Patient denied any loss of consciousness or chest discomfort. He complained of some palpitations. He presented to the emergency room where he underwent a CT scan of his head which was unremarkable. Chest x-ray was also negative. The patient was screened for COVID and found to be negative. Serial troponin markers were unremarkable. His initial electrocardiogram (EKG) showed sinus tachycardia without any specific ST or T-wave changes or ST elevation or depression. Patient was admitted to the hospitalist service under observation status. He was monitored on telemetry. No arrhythmias were appreciated. Serial troponin markers remained stable. He underwent a carotid ultrasound which is suspicious for possible abnormality in the left subclavian artery. A CT of his head and neck were obtained. This indicated that he had high grade stenosis of the left subclavian artery. Patient reported intermittent numbness in his left arm at times, but not frequent. He was started on atorvastatin and continued on his aspirin. Echocardiogram was obtained; however, the results were not available at the time of discharge. I have informed him I will contact him in the a.m. to discuss the results of this. The patient was advised that he will need followup with his primary care physician (PCP) to schedule an outpatient cardiac stress test as well as a referral to vascular surgeon. A total of 30 minutes was spent completing all discharge paperwork. DISCHARGE PHYSICAL EXAMINATION: Temperature 97, pulse 77, respirations 20, blood pressure 124/60, oxygen saturation 96% on room air. GENERAL: The patient is alert and oriented times three. He is not exhibiting any focal neurological deficits. Speech is fluid. HEAD: Atraumatic. Pupils symmetric and reactive to light. Oropharynx is clear. NECK: Supple. LUNGS: Sounds appreciated. No rales or rhonchi. HEART: S1, S2. No audible murmurs or gallops. ABDOMEN: Soft, nontender, nondistended. EXTREMITIES: No clubbing, cyanosis or edema, evidence of gangrene or perfusion deficits.
--- NOTE | 2021-02-13 07:29 | ECHO ---
DATE OF PROCEDURE: 02/08/2021 Age: 76 Gender: Male PATIENT LOCATION: Room 4206. REFERRING PHYSICIAN: Carmelo Rubio M.D. REASON FOR STUDY: Syncope. 2D MEASUREMENTS: IVS 0.79 cm LV 4.4 cm LVPW 0.9 cm LA 2.7 cm Aorta 3.2 cm IVC 1.5 cm DOPPLER MEASUREMENT Peak velocity across the aortic valve 1.1 m/s Peak velocity across the LVOT 0.55 m/s Mitral E 0.75 Mitral A 0.94 with a ratio of 0.8 2D COMMENTS: 1. Normal left ventricular size, wall thickness, and normal global left ventricular systolic function. The estimated left ventricular systolic ejection fraction is 55% to 60%. 2. Normal left atrium. Normal right atrium and right ventricle. 3. The atrial septum appeared to be normal without evidence of defect or shunt. 4. Normal aortic root. 5. Trace pericardial effusion noted, no evidence of cardiac tamponade. 6. Mildly calcified aortic valve with normal leaflet excursion. Mildly calcified mitral annulus with normal anterior mitral valve leaflet motion. Normal tricuspid valve. The pulmonic valve and proximal pulmonary artery branches were not well visualized. 7. The inferior vena cava was normal in size, central venous pressure is most likely normal. 8. Doppler detects trace mitral regurgitation and trace tricuspid regurgitation. Abnormal relaxation pattern was noted across the mitral valve leaflets, as well as the mitral valve annulus consistent with features of grade 1 left ventricular diastolic dysfunction. IMPRESSION: 1. Normal global left ventricular systolic function. There are some features of left ventricular diastolic dysfunction manifested by abnormal relaxation. 2. Aortic valve sclerosis without stenosis or aortic regurgitation. 3. Mitral annular calcification with trace mitral regurgitation. 4. Trace tricuspid regurgitation. 5. Trace pericardial effusion. 6. Not mentioned above, this study was technically limited due to poor acoustic window. [facility]
== END 2021-02-08 13:22 | disposition home or self-care (01) ==
LOC: EDBD 13:37 → EDSEX 13:37 → M ED 13:37 → M ED INP 13:38 → ENRESERV 19:11 → M MSPAV 20:03
PROVIDERS: ADMIT Internal Medicine; ATTEND Internal Medicine
DX: R55 Syncope and collapse (principal); I77.1 Stricture of artery; I10 Essential (primary) hypertension; F17.218 Nicotine dependence, cigarettes, with other nicotine-induced disorders; J44.9 Chronic obstructive pulmonary disease, unspecified; Z85.46 Personal history of malignant neoplasm of prostate; R73.03 Prediabetes; Z79.899 Other long term (current) drug therapy; Z79.82 Long term (current) use of aspirin; Z79.84 Long term (current) use of oral hypoglycemic drugs
CPT/HCPCS: 36415; 70450; 70496; 70498; 71045; 80048; 80307; 82077; 82550; 82553; 83605; 83735; 84439; 84443; 84484; 85025; 85027; 85610; 85730; 87798; 93005; 93041; 93306; 93880; 94760; 96372; 96374; 99285; G0378; J1650; Q9967

== ENCOUNTER → 2021-04-03 | Outpatient (CLI) | payer MEDICARE ==
[~2021-04-03] MED LIST changes: +ASPI-424 PO; +ASPI81CH33 PO; +ATOR40TA75 PO; +CHAN1PAK11 PO; +INCR1INH; +METF500T13 PO
--- NOTE | 2021-04-03 10:45 | REP ---
INDICATION: COPD,NICOTINE DEPENDENCE,ABN FINDING OF LUNG FIELD COMPARISON: 10/03/2020, 09/24/2018 TECHNIQUE: Axial noncontrast images from the thoracic inlet to the upper abdomen with coronal and sagittal reformations. This CT examination was performed using the following dose reduction techniques: Automated exposure control, adjustment of mA and/or kv according to the patient's size, and use of iterative reconstruction technique. FINDINGS: Right apical lesion with small central cavitary component and marginal fibrosis/scarring along with 10 mm left apical nodule and diffuse advanced COPD/emphysematous changes with bronchiectasis and scattered scarring all remain stable. 4 mm noncalcified nodule in the left upper lobe (series 201; image 54) remains stable through 2019 examination. There is a 3.5 mm new nodule in the left lower lobe (series 201; image 51) which was not identified on 2019. No acute consolidation. No effusion. No pneumothorax. No significant adenopathy. Atherosclerotic changes to the thoracic aorta and coronary arteries again noted. Surrounding musculoskeletal structures demonstrate degenerative changes. Limited upper abdomen demonstrates normal bilateral adrenal glands and cholelithiasis. IMPRESSION: 1. A relatively new 3.5 mm noncalcified nodule in the left lower lobe represent a new nodule compared to 2019. Short-term 6 month follow-up examination may be warranted. 2. Remainder of the nodules and chronic emphysematous changes remains stable. <Electronically signed by Jessee Pickard > 04/03/21 [id number]
== END ==
LOC: M RAD 09:22
PROVIDERS: ATTEND Nurse Practitioner Family
DX: J44.9 Chronic obstructive pulmonary disease, unspecified (principal); F17.210 Nicotine dependence, cigarettes, uncomplicated; R91.8 Other nonspecific abnormal finding of lung field

== ENCOUNTER → 2021-04-11 | Outpatient (CLI) | payer MEDICARE | LOC: M PLALAB 11:21 | PROVIDERS: ATTEND Urology | DX: C61 Malignant neoplasm of prostate (principal) | CPT/HCPCS: 36415; G0103; G0463 ==

== ENCOUNTER → 2021-05-12 | Outpatient (CLI) | payer MEDICARE ==
[2021-05-12 13:36] LABS: HEMATOCRIT 49.6 % (42.0-52.0); MEAN CORPUSCULAR HEMOGLOBIN 29.8 pg (27.0-33.0); MEAN CORPUSCULAR HGB CONC 32.3 g/dl (32.0-36.5); MEAN CORPUSCULAR VOLUME 92.4 fl (80.0-96.0); PLATELET COUNT, AUTOMATED 260 10^3/uL (150-450); RED BLOOD COUNT 5.37 10^6/uL (4.30-6.10); WHITE BLOOD COUNT 8.6 10^3/uL (4.0-10.0)
[2021-05-12 14:13] LABS: CHOLESTEROL RISK RATIO 3.648 (<5)
[2021-05-12 14:51] LABS: HEMOGLOBIN A1c 6.1 %
== END ==
LOC: M PLALAB 10:40
PROVIDERS: ATTEND Physician Assistant Medical
DX: R73.01 Impaired fasting glucose (principal); E78.5 Hyperlipidemia, unspecified; R42 Dizziness and giddiness

== ENCOUNTER → 2021-10-16 | Outpatient (CLI) | payer MEDICARE | LOC: M RAD 13:52 | PROVIDERS: ATTEND Nurse Practitioner Family | DX: R91.8 Other nonspecific abnormal finding of lung field (principal); J44.9 Chronic obstructive pulmonary disease, unspecified; K80.20 Calculus of gallbladder without cholecystitis without obstruction; K76.89 Other specified diseases of liver ==

== ENCOUNTER → 2022-04-16 | Outpatient (CLI) | payer MEDICARE | LOC: M PLALAB 11:36 | PROVIDERS: ATTEND Urology | DX: C61 Malignant neoplasm of prostate (principal) ==

== ENCOUNTER → 2022-04-23 | Outpatient (CLI) | payer MEDICARE | LOC: M PLAIMG 08:34 | PROVIDERS: ATTEND Internal Medicine Pulmonary Disease | DX: R91.8 Other nonspecific abnormal finding of lung field (principal); J43.9 Emphysema, unspecified; J47.9 Bronchiectasis, uncomplicated; R91.1 Solitary pulmonary nodule; I70.0 Atherosclerosis of aorta; I25.10 Atherosclerotic heart disease of native coronary artery without angina pectoris ==

== ENCOUNTER → 2022-07-22 | Outpatient (CLI) | payer MEDICARE ==
[~2022-07-22] MED LIST changes: +ROSU20TA5 PO; +VENTAER INH
== END ==
LOC: M LABSMTC 09:59
PROVIDERS: ATTEND Anesthesiology
DX: Z01.812 Encounter for preprocedural laboratory examination (principal); Z20.822 Contact with and (suspected) exposure to COVID-19

== ENCOUNTER 2022-07-25 08:14 | Day surgery (SDC) | payer MEDICARE ==
[~2022-07-25] VITALS: Ht 175.3 cm; Wt 87.5 kg
[~2022-07-25 08:14] MED LIST changes: +NS 1,000 ML IV ONE; -VENTAER INH
[2022-07-25] MEDS ORDERED: propofoL 200 MG/20 ML VIAL As Ordered ONE (08:46)
[2022-07-25] MEDS ORDERED: LIDOCAINE 2% 100MG/5ML SDV (FOR ANES.) As Ordered ONE (08:47)
[2022-07-25] MEDS ORDERED: VENTAER INH (08:47)
[2022-07-25] MEDS ORDERED: PHENYLephrine 500MCG 5ML (100MCG/ML) SYRINGE As Ordered ONE (09:42)
[2022-07-25 10:40] VITALS: BP 114/79
== END 2022-07-25 10:50 | disposition home or self-care (01) ==
LOC: M OPP 08:14
PROVIDERS: ATTEND Surgery
DX: Z86.010 Personal history of colon polyps (principal); Z80.0 Family history of malignant neoplasm of digestive organs; D12.6 Benign neoplasm of colon, unspecified; K57.30 Diverticulosis of large intestine without perforation or abscess without bleeding; K64.9 Unspecified hemorrhoids; Z79.02 Long term (current) use of antithrombotics/antiplatelets; Z79.51 Long term (current) use of inhaled steroids; Z79.82 Long term (current) use of aspirin; F17.200 Nicotine dependence, unspecified, uncomplicated; J44.9 Chronic obstructive pulmonary disease, unspecified; E78.00 Pure hypercholesterolemia, unspecified; Z85.828 Personal history of other malignant neoplasm of skin; Z85.46 Personal history of malignant neoplasm of prostate
CPT/HCPCS: 45385; 88305; J2370